=== PATIENT | male | born 1970 | race African-American/Black ===

== ENCOUNTER 2025-04-20 10:31 | Outpatient (CLI) | payer BC, SELFPAY ==
--- OUTSIDE RECORDS SUMMARY | 2025-04-20 10:36 | XMS_ITS | Clinical Summary ---
Author Organization [facility] Address [facility] [place] [address] Care Team Providers Care Mechanical Engineering Intern Name Role Phone No, Physician Primary Care Provider [phone] Allergies Active Allergy Reactions Criticality Noted Date Comments Lisinopril Fatigue,Other (See comments),Palpitations Low 04/24/2015 Tachycardia Penicillins Hives Medium 04/24/2015 Reaction: Hives, From childhood Medications hydroCHLOROthiazid e (MICROZIDE) 12.5 mg capsule Active fish,bora,flax oils-om3,6,9no1 1,200 mg capsule Act anh fenofibrate (FENOGLIDE) 40 mg tablet Active doxylamine-phenyle phrine 10.5-10 mg tablet Active ibuprofen 200 mg tab/cap Active LISINOPRIL, BULK, MISC Active ibuprofen-acetamin ophen 125-250 mg tablet Active Active Problems Problem Noted Date Diagnosed Date HTN (hypertension) 05/10/2023 Overview (05/10/2023): Complaint with medication. Starting exercise. No dexter/cp/shortness of breath. Last Assessment & Plan: Continue vasotec/norvasc/hctz Colon polyp 05/06/2022 Diverticula of colon 03/06/2022 Overview (05/10/2023): Noted on colonoscopy report. Hyperlipidemia 11/08/2015 Overview (05/10/2023): better with diet/tricor. No myalgia, + FH CAD AHA risk 12/2021 9.2 Last Assessment & Plan: Check lipid/liver panel Asthma 04/02/2014 Overview (02/19/2017): ASTHMA NOS Atopic rhinitis 04/02/2014 Overview (02/19/2017): ALLERGIC RHINITIS NOS Hypertension 04/02/2014 Overview (02/21/2017): HYPERTENSION NOS Immunizations Immunization Administration Dates Next Due Influenza, Split 08/28/2010 Influenza, Trivalent, IM (MDV) 09/11/2012,2010 Surgical History Surgery Date Site/Laterality Comments TONSILLECTOMY Tonsillectomy Family History Medical History Relation Name Comments Arthritis Father Rupert Hypertension Father Rupert Arthritis Maternal Grandfather Willian Diabetes Maternal Grandfather Willian Heart attack Maternal Grandfather Willian Hypertension Maternal Grandfather Willian Vision loss Maternal Grandfather Willian Alzheimer's disease Maternal Grandmother Else Arthritis Maternal Grandmother Else Cancer Maternal Grandmother Else Heart attack Maternal Grandmother Else Arthritis Mother Najma Depression Mother Najma Drug abuse Mother Najma Hypertension Mother Najma Mental illness Mother Najma Hypertension Other 2 Hypertension; Allergy (severe) Son Tim Relation Name Status Comments Father Rupert Maternal Grandfather Willian Maternal Grandmother Else Mother Najma Other 1 Alive Other 2 Son Tim Social History Tobacco Use Types Packs/Day Years Used Date Smoking Tobacco: Former Cigarettes 0.1 15 1 - 11/16/2022 Smokeless Tobacco: Current Tobacco Cessation:Ready to Q uit: No; Counseling Given: Not Answered Alcohol Use Standard Drinks/Week Comments Yes 0 (1 standard drink = 0.6 oz pur e alcohol) Sex and Gender Information Value Date Recorded Sex Assigned at Not on file 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 Gender Identity Not on file Sexual Orientation Not on file Obstetrics History Plan of Treatment Health Maintenance Due Date Last Done Comments Colon Cancer Screening-Colonoscopy 1970 Depression Screening 1970 Hepatitis C Screening 1970 Prostate Cancer Screening-PSA 1970 Hepatitis B Screening 1988 Regular Well Visit/Exam 18-64 1988 Pneumococcal vaccine <65 (1 of 2 - PCV) 1989 Zoster Vaccine (1 of 2) 2020 Covid-19 Vaccine (4 - 2023-2 5 season) 2024 08/28/2021, 02/25/2021, 02/04/2021 DTaP/Tdap/Td Vaccine (2 - Td or Tdap) 04/24/2025 04/24/2015 Influenza Vaccine (Season Ended) 2025 08/28/2021, 09/17/2017, 08/17/2015, Additional history exists Insurance [employer] [facility] Address: [facility] [id number] [place] [address] Care Teams Mechanical Engineering Intern Relationship Specialty Start Date End Date No, Physician PCP - General 04/15/23
--- OUTSIDE RECORDS SUMMARY | 2025-04-20 10:36 | XMS_ITS | Clinical Summary ---
Author Organization [facility] [employer] Address [address] [place] [address] Care Team Providers Care Head Housekeeper Name Role Phone Ishaan Thomas MD Primary Care Provider Source Comments [facility] [employer],non-owned Affiliates and Associated Physician Practices is amultiple site organization consisting of ambulatory clinics and hospital sitesin [place], [place] and [place]. This disclosure is being madepursuant to the Care Everywhere program and may not contain all information available regarding this patient. Last updated 18.[facility] [employer] Allergies Active Allergy Reactions Criticality Noted Date Comments Lisinopril Other 04/24/2015 Tachycardia Penicillins Unknown 04/24/2015 From childhood Medications * Be aware that medications may not be up to date on this document. Alwaysverify current medications with the patient. naphazoline-gly cerin 0.012-0.2 % ophthalmic solution Instill 1 Drop into both eyes as needed (eye redness.) Active [place]-3 Fatty Acids (FISH OIL PO) Take 1 capsule by mouth once daily Active hydrocortisone (HYTONE) 2.5 % creamIndication s:Pruritus Apply to affected area 2 times daily Rectal area BID. Please supply rectal applicator. Reasons: Itching 60 g 05/06/2022 Active amLODIPine (Norvasc) 10 MG tablet Take 1 (one) tablet by mouth once daily 30 tablet 03/04/2023 Active enalapril (Vasotec) 20 MG tablet Take 1 (one) tablet by mouth once daily 90 tablet 1 03/14/2023 Active fenofibrate (Tricor) 145 MG tablet Take 1 (one) tablet by mouth once daily 90 tablet 1 03/14/2023 Active hydroCHLOROthia zide (Hydrodiuril) 50 MG tablet Take 1 (one) tablet by mouth once daily 90 tablet 1 03/14/2023 Active Active Problems Problem Noted Date Diagnosed Date Colon polyp 05/06/2022 Diverticula of colon 03/06/2022 Overview (05/06/2022): Noted on colonoscopy report. Hyperlipidemia 11/08/2015 Overview (01/11/2022): better with diet/tricor. No myalgia, + FH CAD AHA risk 12/2021 9.2 Assessment & Plan (11/28/2021 10:09 AM DATA CONTROL CLERK SUPERVISOR): Check lipid/liver panel Assessment & Plan (10/23/2020 4:10 PM DATA CONTROL CLERK SUPERVISOR): Check labs and adjust medication accordingly. Assessment & Plan (01/31/2020 11:25 AM CDT): Check labs, stricter diet, resume tricor Assessment & Plan (08/25/2019 10:16 AM CDT): Continue current medication. Check lft Assessment & Plan (11/06/2018 1:28 PM DATA CONTROL CLERK SUPERVISOR): Check labs and adjust medication accordingly. 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 Starting exercise. No dexter/cp/shortness of breath. Assessment & Plan (11/28/2021 10:08 AM DATA CONTROL CLERK SUPERVISOR): Continue vasotec/norvasc/hctz Assessment & Plan (10/23/2020 4:09 PM DATA CONTROL CLERK SUPERVISOR): Continue current medication. Assessment & Plan (01/31/2020 11:30 AM CDT): Continue current medication. Assessment & Plan (08/25/2019 10:15 AM CDT): Continue current medication. Assessment & Plan (11/06/2018 1:28 PM DATA CONTROL CLERK SUPERVISOR): Continue current medication. Assessment & Plan (05/07/2018 10:46 AM CDT): Continue current medication. Assessment & Plan (10/27/2017 8:55 AM DATA CONTROL CLERK SUPERVISOR): Increase to hctz 50 mg Assessment & Plan (07/25/2016 4:24 PM CDT): Increase amlodipine to 10 mg qd Assessment & Plan (11/08/2015 9:13 AM DATA CONTROL CLERK SUPERVISOR): Monitor. Should improve with increasing exercise Assessment & Plan (04/24/2015 11:27 AM CDT): Resume meds. Monitor-call if remains elevated. Immunizations Immunization Administration Dates Next Due INFLUENZA VACCINE 09/17/2017,08/17/2015 INFLUENZA VACCINE, QUADR. (F LUZONE; FLULAVAL; FLUARIX; AFLURIA QUADRIVALENT; 6MO+), 0.5 ML (IIV4) 08/28/2021 TDAP (7yrs+) 04/24/2015 Family History Medical History Relation Name Comments CAD (Coronary Artery Disease) Maternal Grandfather Diabetes Maternal Grandfather CAD (Coronary Artery Disease) Maternal Grandmother Cancer Maternal Grandmother lung Cancer - Colon Neg Hx Colon polyps Neg Hx Malignant Hyperthermia Neg Hx Relation Name Status Comments Maternal Grandfather Maternal Grandmother Social History Tobacco Use Types Packs/Day Years Used Date Smoking Tobacco: Former Cigarettes Q uit: 07/29/2021 Smokeless Tobacco: Never Tobacco Cessation:Counseling Given: Not Answered Alcohol Use Standard Drinks/Week Comments Yes 5 (1 standard drink = 0.6 oz pur e alcohol) PHQ-2 Answer Date Recorded PHQ2 TOTAL SCORE 0 03/05/2023 Sex and Gender Information Value Date Recorded Sex Assigned at Not on file Legal Sex Male 6:32 AM DATA CONTROL CLERK SUPERVISOR Gender Identity Not on file Sexual Orientation Not on file 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 file Not on file Not on file Last Filed Vital Signs Vital Sign Reading Time Taken Comments Blood Pressure 122/89 10/07/2022 9:02 AM DATA CONTROL CLERK SUPERVISOR Pulse 63 10/07/2022 9:02 AM DATA CONTROL CLERK SUPERVISOR Temperature 36.5 C (97.7 F) 05/06/2022 9:58 AM CDT Respiratory Rate 24 03/06/2022 10:5 9 AM CDT Oxygen Saturation 98% 10/07/2022 9:02 AM DATA CONTROL CLERK SUPERVISOR Inhaled Oxygen Concentration - - Weight 105.4 kg (232 lb 6.4 oz) 10/07/2022 9:02 AM DATA CONTROL CLERK SUPERVISOR Height 177.8 cm (5' 10) 10/07/2022 9:02 AM DATA CONTROL CLERK SUPERVISOR Body Mass Index 33.35 10/07/2022 9:02 AM DATA CONTROL CLERK SUPERVISOR Plan of Treatment Health Maintenance Due Date Last Done Comments COLOGUARD (AGES 45-75) - COLON CA SCREENING 1970 CT COLONOGRAPHY - COLON CA SCREENING 1970 FIT - COLON CA SCREENING 1970 FLEX SIG - COLON CA SCREENING 1970 HEPATITIS B VACCINE (1 of 3 - 19+ 3-dose series) 1989 PNEUMOCOCCAL VACCINE 50+ (1 of 1 - PCV) 2020 ZOSTER VACCINE (1 of 2) 2020 COVID-19 VACCINE (4 - 2023- season) 2024 08/28/2021, 02/25/2021, 02/04/2021 DEPRESSION SCREENING 11/17/2024 03/05/2023, 11/28/19 22 SCREENING FOR DIABETES 01/10/2025 , 11/01/2020, 02/29/2020, Additional history exists DTAP/TDAP/TD VACCINES (2 - Td or Tdap) 04/24/2025 04/24/2015 INFLUENZA VACCINE (Season Ended) 2025 08/28/2021, 09/17/2017, 08/17/2015 LIPID TESTING 01/10/2027 01/10/2022, 02/15, 12/28/2018, Additional history exists COLONOSCOPY - COLON CA SCREENING 03/06/2027 03/06/2022, 03/06/2022 Colorectal Cancer Screening 03/06/2027 COLON MONITORING 03/06/2032 03/06/2022, 03/06/2022 HEPATITIS C SCREENING Completed 01/10/2022 HIV SCREENING Completed 01/10/2022 HIB VACCINE Aged Out No longer eligi ble based on patient's age to complete this topic HPV VACCINE Aged Out No longer eligi ble based on patient's age to complete this topic MENINGOCOCCAL (Group B) VACCINE SHARED DECISION-MAKING Aged Out No longer eligible based on patient's age to complete this topic MENINGOCOCCAL GROUPS A/C/Y/W VACCINE Aged Out No longer eligible based on patient's age to complete this topic Goals Goal Patient Goal Type Associated Problems Recent Progress Patient-Stated? Author Blood Pressure < 140/90 Blood Pressure 122/89(2021 9:02 AM DATA CONTROL CLERK SUPERVISOR) No Ashley Martinez Quit smoking / using tobacco Lifestyle On track( 018 1:22 PM DATA CONTROL CLERK SUPERVISOR) No Ashley Martinez Procedures Procedure Name Priority Date/Time Associated Diagnosis Comments ENDOSCOPY, COLON, DIAGNOSTIC Routine 03/06/2022 10:00 AM CDT COMPREHENSIVE METABOLIC PANEL Routine 01/10/2022 8:25 AM DATA CONTROL CLERK SUPERVISOR Hyperlipidemia, unspecified hyperlipidemia type Annual physical exam LIPID PROFILE Routine 01/10/2022 8:25 AM DATA CONTROL CLERK SUPERVISOR Hyperlipidemia, unspecified hyperlipidemia type Annual physical exam HEPATITIS C ANTIBODY Routine 01/10/2022 8:21 AM DATA CONTROL CLERK SUPERVISOR Need for hepatitis C screening test Annual physical exam HIV-1 HIV-2 ANTIBODY + HIV P24 AG PANEL Routine 01/10/2022 8:21 AM DATA CONTROL CLERK SUPERVISOR Encounter for screening for HIV Annual physical exam from Last 3 Months or Most Recently Relevant to Health Maintenance Results * ENDOSCOPY, COLON, DIAGNOSTIC (03/06/2022 10:00 AM CDT) Report Endoscopy POC _ Patient Name: Rupert Lee Procedure Date: 03/06/2022 10:00 AM Date of : 1970 Admit Type: Outpatient Age: 51 Gender: Male Attending MD: Mendez Hanson , _ Procedure: Colonoscopy Indications: Screening for colorectal malignant neoplasm Providers: Mendez Hanson (Doctor) Patient Profile: This is a 51 year old male. Referring MD: Ishaan Thomas MD (Referring MD) Medicines: Monitored Anesthesia Care Complications: No immediate complications. _ Estimated Blood Loss: Estimated blood loss: none. Procedure: Pre-Anesthesia Assessment: - Prior to the procedure, a History and Physical was performed, and patient medications and allergies were reviewed. The patient's tolerance of previous anesthesia was also reviewed. The risks and benefits of the procedure and the sedation options and risks were discussed with the patient. All questions were answered, and informed consent was obtained. Prior Anticoagulants: The patient has taken no previous anticoagulant or antiplatelet agents. ASA Grade Assessment: II - A patient with mild systemic disease. After reviewing the risks and benefits, the patient was deemed in satisfactory condition to undergo the procedure. After I obtained informed consent, the scope was passed under direct vision. Throughout the procedure, the patient's blood pressure, pulse, and oxygen saturations were monitored continuously. The Colonoscope was introduced through the anus and advanced to the cecum, identified by appendiceal orifice and ileocecal valve. The appendiceal orifice was photographed. The colonoscopy was performed with ease. The patient tolerated the procedure well. The quality of the bowel preparation was good. Findings: A polyp was found in the ascending colon. The polyp was sessile. The polyp was removed with a cold biopsy forceps. Resection and retrieval were complete. Four sessile polyps were found in the rectum. These polyps were removed with a cold biopsy forceps. Resection and retrieval were complete. A few diverticula were found in the sigmoid colon and descending colon. The splenic flexure, transverse colon, hepatic flexure, ascending colon and cecum appeared normal. _ Impression: - One polyp in the ascending colon, removed with a cold biopsy forceps. Resected and retrieved. - Four polyps in the rectum, removed with a cold biopsy forceps. Resected and retrieved. - Diverticulosis in the sigmoid colon and in the descending colon. - The splenic flexure, transverse colon, hepatic flexure, ascending colon and cecum are normal. Recommendation: - Patient has a contact number available for emergencies. The signs and symptoms of potential delayed complications were discussed with the patient. Return to normal activities tomorrow. Written discharge instructions were provided to the patient. - Resume previous diet. - Continue present medications. - Await pathology results. - Repeat colonoscopy in 5 years for surveillance. - Telephone endoscopist for pathology results in 1 week. Procedure Code(s): --- Professional --- 40506, Colonoscopy, flexible; with biopsy, single or multiple --- Technical --- 67595, Colonoscopy, flexible; with biopsy, single or multiple Diagnosis Code(s): --- Professional --- Z12.11, Encounter for screening for malignant neoplasm of colon K63.5, Polyp of colon K62.1, Rectal polyp K57.30, Diverticulosis of large intestine without perforation or abscess without bleeding --- Technical --- Z12.11, Encounter for screening for malignant neoplasm of colon K63.5, Polyp of colon K62.1, Rectal polyp K57.30, Diverticulosis of large intestine without perforation or abscess without bleeding CPT copyright 2019 [employer]. All rights reserved. The codes documented in this report are preliminary and upon records clerk review may be revised to meet current compliance requirements. ___ Mendez Hanson, 03/06/2022 10:47:18 AM Number of Addenda: 0 Note Initiated On: 03/06/2022 10:00 AM NANDA DAYANA 03/06/2022 10:0 0 AM CDT us Mendez Hanson MD GI PROCEDURE ORDERABLES E dited Result - Final [facility] * (ABNORMAL) COMPREHENSIVE METABOLIC PANEL (01/10/2022 8:25 AM DATA CONTROL CLERK SUPERVISOR) Glucose 99 65 - 99 mg/dL [facility] INSURANCE BILL BUN 15 6 - 24 mg/dL [facility] INSURANCE BILL Creatinine 1.40(H) 0.76 - 1.27 mg/dL [facility] INSURANCE BILL Comment: Effective January 14, 2022 [facility] will begin reporting the 2020 CKD-EPI creatinine equation that estimates kidney function without a race variable. eGFR by MDRD 58(L) >59 mL/min/1. 73 [facility] INSURANCE BILL eGFR by MDRD 67 >59 mL/min/1. 73 [facility] INSURANCE BILL Comment: In accordance with recommendations from the NKF-ASN Task force, [facility] is in the process of updating its eGFR calculation to the 2020 CKD-EPI creatinine equation that estimates kidney function without a race variable. BUN/Creatinine Ratio 11 9 - 20 [facility] INSURANCE BILL Sodium 138 134 - 144 mmol/L [facility] INSURANCE BILL Potassium 3.7 3.5 - 5.2 mmol/L [facility] INSURANCE BILL Chloride 97 96 - 106 mmol/L [facility] INSURANCE BILL CO2 26 20 - 29 mmol/L [facility] INSURANCE BILL Calcium 10.1 8.7 - 10.2 mg/dL [facility] INSURANCE BILL Protein Total 7.7 6.0 - 8.5 g/dL [facility] INSURANCE BILL Albumin 4.7 3.8 - 4.9 g/dL [facility] INSURANCE BILL Globulin Total 3.0 1.5 - 4.5 g/dL [facility] INSURANCE BILL Albumin/Globulin Ratio 1.6 1.2 - 2.2 [facility] INSURANCE BILL Bilirubin Total 0.5 0.0 - 1.2 mg/dL [facility] INSURANCE BILL Alkaline Phosphatase 47 44 - 121 IU/L [facility] INSURANCE BILL AST 25 0 - 40 IU/L [facility] INSURANCE BILL ALT 26 0 - 44 IU/L [facility] INSURANCE BILL Comment:FASTING Blood BLOOD SPECIMEN / Unknown 01/10/2022 8:25 AM DATA CONTROL CLERK SUPERVISOR 01/10/2022 Narrative Resulting Agency Comment Lab Testing performed at: [facility] [address] [id number] Ishaan Thomas MD LAB - CHEMISTRY ORDERABLES F inal Result [facility] INSURANCE BILL [address] [place] [address] * (ABNORMAL) LIPID PROFILE (01/10/2022 8:25 AM DATA CONTROL CLERK SUPERVISOR) Cholesterol 224(H) 100 - 199 mg/dL [facility] INSURANCE BILL Triglycerides 193(H) 0 - 149 mg/dL [facility] INSURANCE BILL HDL Cholesterol 46 >39 mg/dL [facility] INSURANCE BILL VLDL Calculated 35 5 - 40 mg/dL [facility] INSURANCE BILL LDL Calculated 143(H) 0 - 99 mg/dL [facility] INSURANCE BILL Comment NOT NEEDED [facility] INSURANCE BILL Comment: FASTING Ancillary determined the test is not needed. Blood BLOOD SPECIMEN / Unknown 01/10/2022 8:25 AM DATA CONTROL CLERK SUPERVISOR 01/10/2022 Narrative Resulting Agency Comment Lab Testing performed at: [address] [id number] Ishaan Thomas MD LAB - CHEMISTRY ORDERABLES F inal Result Performing Organization Address [facility]/ZIP Co de Phone Number [facility] INSURANCE BILL [address] [place] [address] * HIV-1 HIV-2 ANTIBODY + HIV P24 AG PANEL (01/10/2022 8:21 AM DATA CONTROL CLERK SUPERVISOR) [facility] HIV Screen 4th Generation w Reflex Non Reactive Non Reactive [facility] INSURANCE BILL Comment: HIV Negative HIV-1/HIV-2 antibodies and HIV-1 p24 antigen were NOT detected. There is no laboratory evidence of HIV infection. FASTING Blood BLOOD SPECIMEN / Unknown 01/10/2022 8:21 AM DATA CONTROL CLERK SUPERVISOR 01/10/2022 Narrative Resulting Agency Comment Lab Testing performed at: [address] [id number] Ishaan Thomas MD LAB - CHEMISTRY ORDERABLES F inal Result Performing Organization Address [facility] de Phone Number [facility] INSURANCE BILL [address] [place] [address] * HEPATITIS C ANTIBODY (01/10/2022 8:21 AM DATA CONTROL CLERK SUPERVISOR) [facility] Hepatitis C Antibody <0.1 0.0 - 0.9 s/co ratio [facility] INSURANCE BILL Comment: Negative: < 0.8 Indeterminate: 0.8 - 0.9 Positive: > 0.9 . The CDC recommends that a positive HCV antibody result be followed up with a HCV Nucleic Acid Amplification test ([id number]). FASTING Blood BLOOD SPECIMEN / Unknown 01/10/2022 8:21 AM DATA CONTROL CLERK SUPERVISOR 01/10/2022 Narrative Resulting Agency Comment Lab Testing performed at: [address] [id number] Ishaan Thomas MD LAB - CHEMISTRY ORDERABLES F inal Result [facility] INSURANCE BILL [address] [place] [address] from Last 3 Months or Most Recently Relevant to Health Maintenance Insurance ANTH Care Teams Head Housekeeper Relationship Specialty Start Date End Date Ishaan Thomas MD [address] [place] [address] PCP - General Internal Medicine 04/24/15
--- OUTSIDE RECORDS SUMMARY | 2025-04-20 10:36 | XMS_ITS | Referral Summary ---
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
--- NOTE | 2025-04-20 11:15 | NEURO_ITS ---
Impression: # Complains of pain and numbness of hands, right more than left. Not diabetic. ? # Right moderate Carpal Tunnel Syndrome. ? # Left sensory mild Carpal Tunnel Syndrome. ? # Normal Needle/EMG exam. Nerve Conduction Studies Anti Sensory Summary Table ?Stim Site NR Peak (ms) P-T Amp (?V) Site1 Site2 Delta-P (ms) Dist (cm) Ruben (m/s) Left Median Anti Sensory (2-3nd Digit) Wrist ? 3.8 21.3 Wrist 2-3nd Digit 3.8 14.0 37 Wrist ? 3.9 25.0 Wrist 2-3nd Digit 3.8 14.0 37 Right Median Anti Sensory (2-3nd Digit) Wrist ? 5.3 8.1 Wrist 2-3nd Digit 5.3 14.0 26 Wrist ? 6.4 5.7 Wrist 2-3nd Digit 5.3 14.0 26 Left Radial Anti Sensory (Base 1st Digit) Wrist ? 2.2 20.1 Wrist Base 1st Digit 2.2 0.0 Right Radial Anti Sensory (Base 1st Digit) Wrist ? 2.5 8.9 Wrist Base 1st Digit 2.5 0.0 Left Ulnar Anti Sensory (5th Digit) Wrist ? 2.8 22.0 Wrist 5th Digit 2.8 14.0 50 Right Ulnar Anti Sensory (5th Digit) Wrist ? 2.6 20.3 Wrist 5th Digit 2.6 14.0 54 Motor Summary Table ?Stim Site NR Onset (ms) O-P Amp (mV) Site1 Site2 Delta-0 (ms) Dist (cm) Ruben (m/s) Left Median Motor (Abd Poll Brev) Wrist ? 3.9 3.4 Elbow Wrist 6.8 34.0 50 Elbow ? 10.7 3.7 Right Median Motor (Abd Poll Brev) Wrist ? 5.2 1.8 Elbow Wrist 5.8 34.0 59 Elbow ? 11.0 2.7 Left Ulnar Motor (Abd Dig Minimi) Wrist ? 2.7 1.7 A Elbow Wrist 5.7 33.0 58 A Elbow ? 8.4 1.7 B Elbow Wrist 4.4 26.0 59 B Elbow ? 7.1 2.2 Right Ulnar Motor (Abd Dig Minimi) Wrist ? 2.7 6.8 A Elbow Wrist 6.6 33.0 50 A Elbow ? 9.3 5.3 B Elbow Wrist 4.7 25.0 53 B Elbow ? 7.4 5.1 F Wave Studies ?NR F-Lat (ms) L-R F-Lat (ms) Left Median (Mrkrs) (Abd Poll Brev) ? 31.72 3.55 Right Median (Mrkrs) (Abd Poll Brev) ? 35.26 3.55 Left Ulnar (Mrkrs) (Abd Dig Min) ? 33.83 0.39 Right Ulnar (Mrkrs) (Abd Dig Min) ? 33.44 0.39 EMG ?Side Muscle Nerve Root Ins Act Fibs Amp Dur Recrt Comment Right 1stDorInt Ulnar C8-T1 Nml Nml Nml Nml Nml Right Ext Indicis Radial (Post Int) C7-8 Nml Nml Nml Nml Nml Right Ext Digitorum Radial (Post Int) C7-8 Nml Nml Nml Nml Nml Right BrachioRad Radial C5-6 Nml Nml Nml Nml Nml Right PronatorTeres Median C6-7 Nml Nml Nml Nml Nml Right Abd Poll Brev Median C8-T1 Nml Nml Nml Nml Nml Right ABD Dig Min Ulnar C8-T1 Nml Nml Nml Nml Nml Right FlexPolLong Median (Ant Int) C7-8 Nml Nml Nml Nml Nml Right Abd Poll Long Radial (Post Int) C7-8 Nml Nml Nml Nml Nml Left 1stDorInt Ulnar C8-T1 Nml Nml Nml Nml Nml Left Ext Indicis Radial (Post Int) C7-8 Nml Nml Nml Nml Nml Left Ext Digitorum Radial (Post Int) C7-8 Nml Nml Nml Nml Nml Left BrachioRad Radial C5-6 Nml Nml Nml Nml Nml Left PronatorTeres Median C6-7 Nml Nml Nml Nml Nml Left Abd Poll Brev Median C8-T1 Nml Nml Nml Nml Nml Left ABD Dig Min Ulnar C8-T1 Nml Nml Nml Nml Nml Left FlexPolLong Median (Ant Int) C7-8 Nml Nml Nml Nml Nml Left Abd Poll Long Radial (Post Int) C7-8 Nml Nml Nml Nml Nml
== END 2025-04-20 10:32 | disposition home or self-care (01) ==
PROVIDERS: PCP Internal Medicine Gastroenterology; Visit Provider Internal Medicine Gastroenterology
DX: G56.03 Carpal tunnel syndrome, bilateral upper limbs (principal)
CPT/HCPCS: 95886; 95911